=== PATIENT | male | born 1960 | race Two or more races ===

== ENCOUNTER 2018-11-30 01:18 | Inpatient (IN) | payer OTHER ==
[~2018-11-30] VITALS: Ht 172.7 cm; Wt 72.6 kg
--- NOTE | 2018-11-30 01:23 | NUR ---
PT [id number]. C/O "HAVING SOB, 80%O2 ON SITE. GIVEN NITRO+ALBUTEROL" +SOB NOTED. WHEEZING. -DIZZY. AOX4. PAIN DENIES PAIN AT THIS TIME. PT ON MONITOR IN BED 5. O2 SAT AT 86%. RT CALLED.
--- NOTE | 2018-11-30 01:25 | NUR ---
BLOOD DRAWN AND GIVEN TO LAB
[2018-11-30] MEDS ORDERED: Magnesium 1GM/D5W 100ML PREMIX 200 ML IV ONE ×2 (01:30→01:41)
[2018-11-30] MEDS ORDERED: IPRATROPIUM NEB FS 0.5 MG/2.5 ML AMPUL.NEB NEB ONE (01:30)
[2018-11-30] MEDS ORDERED: ALBUTEROL FS 2.5 MG/3 ML VIAL.NEB CONTNEB ONE (01:30)
[2018-11-30] MEDS ORDERED: methylPREDNISolone SOD SUCC 125 MG/2ML VIAL IV ONE (01:30)
--- NOTE | 2018-11-30 01:30 | NUR ---
RT AT BEDSIDE
[2018-11-30] MEDS ORDERED: ALBUTEROL FS 2.5 MG/3 ML VIAL.NEB ONE (01:34)
[2018-11-30] MEDS ORDERED: IPRATROPIUM NEB FS 0.5 MG/2.5 ML AMPUL.NEB ONE (01:34)
[2018-11-30] MEDS ORDERED: methylPREDNISolone SOD SUCC 125 MG/2ML VIAL ONE (01:41)
[2018-11-30 01:45] LABS: BASOPHILS # (AUTO) 0.1 /CMM (0.0-0.2); BASOPHILS % (AUTO) 0.8 % (0.0-2.0); EOSINOPHILS % (AUTO) 2.8 % (0.0-6.0); HEMATOCRIT 49 % (39-51); HEMOGLOBIN 16.4 g/dL (13.5-17.5); LYMPHOCYTES # (AUTO) 3.7 /CMM (0.8-4.8); LYMPHOCYTES % (AUTO) 26.2 % (20.0-44.0); MEAN CORPUSCULAR HGB CONC 33 g/dl (31.0-36.0); MEAN CORPUSCULAR VOLUME 95 fL (80-96); MONOCYTES # (AUTO) 0.6 /CMM (0.1-1.30); MONOCYTES % (AUTO) 4.2 % (2.0-12.0); NEUTROPHILS # (AUTO) 9.4 /CMM (1.8-8.9); PLATELET COUNT (AUTO) 220 /CMM (150-450); RED BLOOD CELL COUNT(AUTO) 5.17 MIL/uL (4.5-6.0); WHITE BLOOD COUNT (AUTO) 14.3 K/uL (4.3-11.0)
[2018-11-30 01:52] LABS: CALCIUM, SERUM 8.5 mg/dL (8.5-10.1); CARBON DIOXIDE 26 mmol/L (21-32); CHLORIDE 104 mmol/L (98-107); CREATININE 1.5 mg/dL (0.6-1.3); GLUCOSE 159 mg/dL (74-106); POTASSIUM 4.3 mmol/L (3.5-5.1); SODIUM SERUM 139 mmol/L (136-145); UREA NITROGEN, BLOOD 14 mg/dL (7-18)
[2018-11-30 02:10] LABS: ALANINE AMINOTRANSFERASE 22 U/L (12-78); ALBUMIN 3.6 g/dL (3.4-5.0); ALKALINE PHOSPHATASE 98 U/L (46-116); ASPARTATE AMINOTRANSFERASE 18 U/L (15-37); B-TYPE NATRIURETIC PEPTIDE 6467 PG/ML (0-125); BILIRUBIN,DIRECT 0.1 mg/dL (0.0-0.2); BILIRUBIN,TOTAL 0.4 mg/dL (0.2-1.0); TOTAL PROTEIN, SERUM 7.1 g/dL (6.4-8.2)
--- NOTE | 2018-11-30 02:13 | NUR ---
BROTHER AT BEDSIDE
[2018-11-30] MEDS ORDERED: NITROGLYCERIN 0.4 MG/TAB BOTTLE ONE (02:14)
--- NOTE | 2018-11-30 02:20 | NUR ---
PT TAKEN TO RADIOLOGY VIA HUAN
[2018-11-30] MEDS ORDERED: IOHEXOL-350 100 ML VIAL IV ONE (02:25)
[2018-11-30] MEDS ORDERED: CT SWABBABLE VALVE TRANS SET 1 EA INFUS.SET MC ONE (02:25)
[2018-11-30] MEDS ORDERED: IV NS 0.9% 250 ML IV ONE (02:25)
[2018-11-30] MEDS ORDERED: ASPIRIN 325 MG TABLET PO ONE (02:30)
[2018-11-30] MEDS ORDERED: NITROGLYCERIN 0.4 MG/TAB BOTTLE SL ONE (02:30)
[2018-11-30] MEDS ORDERED: ASPIRIN 325 MG TABLET ONE (02:47)
--- NOTE | 2018-11-30 02:53 | NUR ---
RADIOLOGY AT BEDSIDE FOR XRAY
[2018-11-30 03:51] LABS: APPEARANCE,URINE CLEAR (CLEAR); BILIRUBIN,URINE NEGATIVE (NEGATIVE); BLOOD, URINE TRACE Ery/uL (NEGATIVE); COLOR,URINE YELLOW (YELLOW); KETONES,URINE NEGATIVE (NEGATIVE); LEUKOCYTE ESTERASE ,URINE NEGATIVE (NEGATIVE); NITRITE, URINE NEGATIVE (NEGATIVE); PROTEIN,URINE NEGATIVE (NEGATIVE); UGLUCOSE NEGATIVE (NEGATIVE); UROBILINOGEN,URINE 0.2 EU/dL (0.2)
[2018-11-30] MEDS ORDERED: AZITHROMYCIN 500 MG in IV D5W 250 ML IV ONE (04:00)
[2018-11-30] MEDS ORDERED: CEFTRIAXONE 1GM BAG (ER ONLY) 1 GM/50 ML PIGGYBACK IV ONE (04:00)
[2018-11-30 04:01] LABS: RBC,URINE 0-2 /HPF (0-2); WBC,URINE 0-2 /HPF (0-3)
[2018-11-30 04:02] LABS: BACTERIA,URINE Rare /HPF (None Seen); SQUAMOUS EPITHELIAL CELL,UR Rare /HPF (None Seen)
--- NOTE | 2018-11-30 04:15 | NUR ---
PHLEB AT BEDSIDE FOR LABS
[2018-11-30] MEDS ORDERED: AZITHROMYCIN 500 MG VIAL ONE (04:16)
[2018-11-30] MEDS ORDERED: CEFTRIAXONE 1GM BAG (ER ONLY) 50 ML IV ONE (04:16)
--- NOTE | 2018-11-30 04:51 | NUR ---
PT ON 4L NC TOLERATING WELL. O2 SAT AT 96%. NO SOB NOTED. WILL CONTINUE TO MONITOR.
[2018-11-30] MEDS ORDERED: hydrALAZINE HCL IV 20 MG VIAL ONE (04:54)
[2018-11-30] MEDS ORDERED: hydrALAZINE HCL IV 20 MG VIAL IV ONE (05:00)
--- NOTE | 2018-11-30 08:06 | NUR ---
Patient is resting comfortably in bed. Family at BS. Patient states that he feels better at this time. Will continuously monitor the patient.
[2018-11-30] MEDS ORDERED: MAGNESIUM HYDROXIDE 30 ML UDC PO PRN (11:00)
[2018-11-30] MEDS ORDERED: MORPHINE SULFATE INJ 2 MG/ML DISP.SYRIN IV PRN (11:00)
[2018-11-30] MEDS ORDERED: ACETAMINOPHEN 325 MG TABLET PO PRN (11:00)
[2018-11-30] MEDS ORDERED: ZOLPIDEM TARTRATE 5 MG TABLET PO PRN (11:00)
[2018-11-30] MEDS ORDERED: CARVEDILOL 3.125 MG TABLET PO SCH (11:00)
[2018-11-30] MEDS ORDERED: HYDROCODONE/APAP 5/325MG 1 EACH TABLET PO PRN (11:00)
[2018-11-30] MEDS ORDERED: PANTOPRAZOLE 40 MG TABLET.DR PO SCH (11:00)
[2018-11-30] MEDS ORDERED: ONDANSETRON HCL/PF 4 MG/2 ML VIAL IVP PRN (11:00)
[2018-11-30] MEDS ORDERED: MAG HYDROX/AL HYDROX/SIMETH 30 ML UDC PO PRN (11:00)
[2018-11-30] MEDS ORDERED: IPRATROPIUM NEB FS 0.5 MG/2.5 ML AMPUL.NEB NEB PRN ×2 (11:00)
--- NOTE | 2018-11-30 11:01 | NUR ---
SEEN BY DR. SAWYER AND REQUESTED FOR TELE BED. TELE 325-2. PRIMARY NURSE AWARE.
--- NOTE | 2018-11-30 11:11 | NUR ---
REPORT GIVEN TO CHIRAG BREWER FOR MARAL TELE 325-2.
[2018-11-30 11:45] VITALS: BP 168/83
[2018-11-30 12:30] VITALS: BP 168/83
--- NOTE | 2018-11-30 12:30 | NUR ---
Tele/RN - Admission Received patient from ER, alert and oriented x 4, denies chest pain, palpitation but c/o shortness of breath with exertion, tele shows ST. Patient admitted for CHF Exacerbation, NSTEMI, Sepsis and community acquired pneumonia under the care of Brijesh Shay NP. Labs noted with elevated troponin and lactic acid trending up, sepsis management withheld secondary to fluid overload. Patient oriented to room, all belongings accounted for. Saline lock on the LAC is patent and intact. Skin assessment done, noted with lipoma on the left trapezius, no skin breakdown, refused photo to be taken. Fall precautions initiated. Admission orders noted and carried out. Will continue to monitor and intervene as needed.
[2018-11-30] MEDS: CARVEDILOL 3.125 MG TABLET PO SCH ×2 (12:49→21:56)
[2018-11-30] MEDS: PANTOPRAZOLE 40 MG TABLET.DR PO SCH (12:49)
--- NOTE | 2018-11-30 12:50 | NUR ---
Tele/RN - Cardio consult Seen and examined by Dr. Case, aware of troponin 2.903 with no further orders. Patient denies chest pain and no c/o palpitations at this time.
[2018-11-30] MEDS: FUROSEMIDE 40 MG/4 ML VIAL IV SCH ×3 (12:55→21:55)
[2018-11-30] MEDS: ENOXAPARIN SODIUM 80 MG/0.8 ML DISP.SYRIN SQ SCH ×2 (14:46→21:57)
--- NOTE | 2018-11-30 15:20 | NUR ---
Tele/RN - Nephrology consult Seen and examined by Dr. Faulkner with no new orders.
[2018-11-30 16:00] VITALS: BP 156/76
[2018-11-30] MEDS: methylPREDNISolone SOD SUCC 40 MG/ML VIAL IV SCH (17:11)
--- NOTE | 2018-11-30 18:45 | NUR ---
MS/RN - End of shift summary Patient is alert and oriented throughout the shift, denies chest pain, tele shows ST, breathing improved, BP and HR more controlled, on Lasix 40 mg IVP Q4H x 3 doses, one more dose to be given tonight. Patient on Rocephin and Zithromax for pneumonia. Possible discharge home tomorrow if stable. Will continue with current medical management.
--- NOTE | 2018-11-30 19:45 | NUR ---
RN OPENING NOTES RECEIVED REPORT FROM [facility] CHIRAG BREWER. FOUND Pt AWAKE, RESTING IN BED. NO S/S OF ACUTE DISTRESS OR SOB NOTED. Pt IS A/OX4, VERBAL, ABLE TO MAKE NEEDS KNOWN. NO C/O CHEST PAIN OR ANY KIND OF OTHER PAIN AT THIS TIME. IV ACCESS ON LAC #20G, SL. ON TELE MONITOR; TELE READING ST 106. SAFETY MEASURES IN PLACE. BED LOW, LOCKED, HOB ELEVATED, SIDE RAILS UP, CALL LIGHT AND BEDSIDE TABLE WITHIN REACH. WILL CONTINUE TO MONITOR Pt's CONDITION AND SAFETY THROUGHOUT THE NIGHT.
[2018-11-30 20:00] VITALS: BP 163/75
--- NOTE | 2018-11-30 20:16 | NUR ---
RN NOTES SPOKE WITH HEALTH CARE FACILITY ADMINISTRATOR HOSPITALIST ABBY KUMAR NP. INFORMED HER OF Pt's ELEVATED TROPONIN LEVEL OF 3.744. Pt IS ASYMPTOMATIC. NO C/O CHEST PAIN OR SOB. HR 101-106, WHICH IS Pt's BASELINE SINCE ADMISSION. Pt IS A/OX4, VERBAL. PER ABBY SAID OK FOR NOW. NO NEW ORDERS NEEDED AT THIS TIME SINCE Pt IS ASYMPTOMATIC AND IS ALREADY ON TREATMENT LOVENOX 70MG.
--- NOTE | 2018-11-30 22:59 | NUR ---
patient is alert,lives locally alone. He is ambulatory and independent with adl's. Has no DME or homehealth reported. His pcp is Dr. Christina Park. Patient plan to return home , brother Silvino [phone] will provide ride. Addendum: 11/30/18 at 2300 by PAT CONTRERAS RN Amended: Links added.
[2018-12-01] VITALS (7 sets, daily range): BP systolic 143–164; BP diastolic 74–84
--- NOTE | 2018-12-01 06:42 | NUR ---
RN CLOSING NOTES NO SIGNIFICANT CHANGES IN Pt's CONDITION. Pt REMAINS STABLE PER BASELINE AT THIS TIME. NO S/S OF ACUTE DISTRESS OR SOB NOTED DURING THE NIGHT. ALL NEEDS MET AND ATTENDED TO. Pt IS CURRENTLY RESTING IN BED WITH EVEN AND UNLABORED RESPIRATIONS. TELE READING SR-ST 105. SAFETY MEASURES IN PLACE. WILL ENDORSE TO DAYSHIFT RN FOR Pt's MARAL.
[2018-12-01 07:37] LABS: BASOPHILS # (AUTO) 0.1 /CMM (0.0-0.2); BASOPHILS % (AUTO) 0.3 % (0.0-2.0); HEMATOCRIT 49 % (39-51); HEMOGLOBIN 16.5 g/dL (13.5-17.5); LYMPHOCYTES # (AUTO) 1.4 /CMM (0.8-4.8); LYMPHOCYTES % (AUTO) 5.9 % (20.0-44.0); MEAN CORPUSCULAR HGB CONC 34 g/dl (31.0-36.0); MEAN CORPUSCULAR VOLUME 93 fL (80-96); MONOCYTES # (AUTO) 1.3 /CMM (0.1-1.30); MONOCYTES % (AUTO) 5.3 % (2.0-12.0); NEUTROPHILS % (AUTO) 88.5 % (43.0-81.0); PLATELET COUNT (AUTO) 228 /CMM (150-450); RED BLOOD CELL COUNT(AUTO) 5.21 MIL/uL (4.5-6.0); WHITE BLOOD COUNT (AUTO) 23.7 K/uL (4.3-11.0)
[2018-12-01 07:47] LABS: ALBUMIN 3.9 g/dL (3.4-5.0); BILIRUBIN,TOTAL 0.7 mg/dL (0.2-1.0); CALCIUM, SERUM 9.3 mg/dL (8.5-10.1); CREATININE 1.6 mg/dL (0.6-1.3); MAGNESIUM 2.6 mg/dL (1.8-2.4); PHOSPHORUS 4.7 mg/dL (2.5-4.9); POTASSIUM 4.2 mmol/L (3.5-5.1); TOTAL PROTEIN, SERUM 7.8 g/dL (6.4-8.2)
--- NOTE | 2018-12-01 08:04 | NUR ---
BOARD MILL SUPERVISOR NOTES PATIENT AWAKE IN BED, ALERT AND ORIENTED X4. PATIENT DENIES ANY PAIN AT THIS TIME. NO ACUTE RESPIRATORY DISTRESS NOTED. PATIENT WITH IV SALINE LOCK ON THE LEFT AC 20G, PATENT AND INTACT. SKIN DRY AND WARM TO TOUCH. PATIENT'S BED ON LOW AND LOCKED POSITION. CALL LIGHT WITHIN REACH.
[2018-12-01] MEDS ORDERED: IV D5/ 0.9% NACL 1,000 ML IV PRN (08:56)
[2018-12-01] MEDS ORDERED: CEFTRIAXONE 1 G in IV D5W 50 ML IV SCH (09:00)
[2018-12-01] MEDS ORDERED: ASPIRIN 81 MG TAB.CHEW PO SCH (09:00)
[2018-12-01] MEDS: methylPREDNISolone SOD SUCC 40 MG/ML VIAL IV SCH (09:28)
[2018-12-01] MEDS: ENOXAPARIN SODIUM 80 MG/0.8 ML DISP.SYRIN SQ SCH ×2 (09:29→21:16)
[2018-12-01] MEDS ORDERED: AZITHROMYCIN 500 MG in IV D5W 250 ML IV SCH (10:00)
[2018-12-01] MEDS: PANTOPRAZOLE 40 MG TABLET.DR PO SCH (10:47)
[2018-12-01] MEDS ORDERED: PANTOPRAZOLE 40 MG TABLET.DR PO SCH (12:30)
[2018-12-01] MEDS: METOPROLOL TARTRATE 50 MG TABLET PO SCH ×2 (12:39→17:56)
--- NOTE | 2018-12-01 19:15 | NUR ---
SENIOR PYTHON DEVELOPER NOTES PATIENT RESTING INSIDE ROOM. AWAKE, ALERT AND ORIENTED X 4, VERBALLY RESPONSIVE AND RESPONDS TO VERBAL AND TACTILE STIMULI. BREATHING EVEN AND UNLABORED. NO ACUTE DISTRESS NOTED. PATIENT CALM AND RELAXED. NO CHANGES IN LOC NOTED AT THIS TIME. IV INTACT AND PATENT. WILL ENDORSE TO INCOMING SHIFT FOR MARAL. BED LOCKED AND IN LOW POSITION. BILATERAL UPPER SIDE RAILS UP AND LOCKED. CALL LIGHT WITHIN EASY REACH
--- NOTE | 2018-12-01 19:50 | NUR ---
RN INITIAL NOTES: RECEIVED REPORT FROM JOSE M BEARD. PT IN BED, AWAKE, A/O X4 DENIES ANY CHEST PAIN OR DISCOMFORT AT THIS TIME. ON TELE SINUS RHYTHM WITH INVERTED T WAVE HR 67. AWAITING FOR AVAILABLE BED IN [facility], FOR CARDIAC CATH, INSURANCE ISSUES. IV ACCESS PATENT AND FLUSHING WELL, ON HL. SAFETY PRECAUTIONS FOR FALL INITIATED, CALL LIGHT IN REACH, WILL CONTINUE MONITORING PT.
--- NOTE | 2018-12-01 21:30 | NUR ---
RN NOTES: RECEIVED CALL FROM ROSI (MAGAN MANDAEN) ASKING HOW LONG PT BEEN ON TELE, MADE AWARE PT ON TELE SINCE ADMISSION 11/30/18, PER ROSI THERE'S STILL NO AVAILABLE ROOM/BED, WILL JUST CALL FOR UPDATE.
--- NOTE | 2018-12-01 23:00 | NUR ---
RN NOTES: RECEIVED CALL FROM [facility], WAS TOLD THAT THERE'S AVAILABLE BED,ACCEPTING MD DR SKAGGS, GOING TO ROOM 4315, PHONE NUMBER [phone] EXT [phone], TELE FLOOR
--- NOTE | 2018-12-01 23:01 | NUR ---
RN NOTES: MADE PT AWARE OF THE PLAN FOR TRANSFER, PT AGREE AND SIGNED PAPER WORKS NECESSARY FOR TRANSFER. PT WILL BE TRANSFER TO [facility] DUE TO INSURANCE 9PT INSURANCE CONTRACTED TO [facility]).
--- NOTE | 2018-12-01 23:15 | NUR ---
RN NOTES: CONTACTED [facility], REPORT GIVEN TO MAURO BEARD, MADE AWARE THAT ETA PER [facility] IS 0100AM.
--- NOTE | 2018-12-02 | NUR ---
RN NOTES: HENNY TJEADA [phone] MADE AWARE OF PT'S TRANSFER
[2018-12-02] MEDS: METOPROLOL TARTRATE 50 MG TABLET PO SCH (00:09)
--- NOTE | 2018-12-02 00:31 | NUR ---
RN NOTES: MAINTENANCE TECHNICIAN 2ND SHIFT MD CURRENTLY IN THE UNIT, MADE AWARE OF THE TRANSFER TO [facility] PER INSURANCE ISSUES AND CARDIAC CATHETERIZATION, PER MD OKAY TO PUT THE DC ORDER
--- NOTE | 2018-12-02 00:35 | NUR ---
RN NOTES: PT REFUSED TO REMOVE IV ACCESS, HE CLAIMED HE DOESN'T WANT TO BE POKED AGAIN ONCE HE ARRIVE TO THE OTHER HOSPITAL, [facility] RN MAURO MADE AWARE
[2018-12-02 02:00] VITALS: BP 153/81
--- NOTE | 2018-12-02 02:00 | NUR ---
DC NOTES: AMBULANCE/EMT CAME TO FLUXER PT. FOR LATERAL TRANSFER TO [facility] PER INSURANCE ISSUES, INSURANCE CONTRACTED WITH [facility], PT ALSO FOR CARDIAC CATHETERIZATION .PT HAS NO BELONGINGS. PT MADE HIS BROTHER AWARE OF THE TRANSFER, AND WAS GIVEN THE ADDRESS AND ROOM NUMBER INCLUDING HOSPITAL TELEPHONE NUMBER. VS TAKEN AND RECORDED. PT DENIES ANY CHEST PAIN OR DISCOMFORT. ARMBAND REMOVED. DC AND TRANSFER PAPER WORKS HANDED TO PT AND ONE COPY PROVIDED TO [employer]. PT LEFT THE UNIT IN STABLE CONDITION ACCOMPANIED BY EMT.
[2018-12-02] MEDS ORDERED: methylPREDNISolone SOD SUCC 40 MG/ML VIAL IV SCH (09:00)
== END 2018-12-02 02:00 | disposition short-term general hospital (02) | DRG 871 ==
LOC: ER 01:20 → TELE 11:05
PROVIDERS: ADMIT Nurse Practitioner Acute Care; ATTEND Nurse Practitioner Acute Care
DX: A41.9 Sepsis, unspecified organism (principal); J18.9 Pneumonia, unspecified organism; I50.23 Acute on chronic systolic (congestive) heart failure; I21.4 Non-ST elevation (NSTEMI) myocardial infarction; E87.2 Acidosis; N17.9 Acute kidney failure, unspecified; I42.9 Cardiomyopathy, unspecified; J90 Pleural effusion, not elsewhere classified; I13.0 Hypertensive heart and chronic kidney disease with heart failure and stage 1 through stage 4 chronic kidney disease, or unspecified chronic kidney disease; J44.0 Chronic obstructive pulmonary disease with (acute) lower respiratory infection; I11.0 Hypertensive heart disease with heart failure; I16.0 Hypertensive urgency; I25.10 Atherosclerotic heart disease of native coronary artery without angina pectoris; N18.9 Chronic kidney disease, unspecified; K21.9 Gastro-esophageal reflux disease without esophagitis; Z87.891 Personal history of nicotine dependence; F41.9 Anxiety disorder, unspecified; D17.9 Benign lipomatous neoplasm, unspecified
CPT/HCPCS: 36415; 71045-TC; 80048-TC; 80053-TC; 80061-TC; 80076-TC; 81000-TC; 83605-TC; 83735-TC; 83880; 84100-TC; 84484-TC; 85025-TC; 85730-TC; 87040-TC; 87081-TC; 87086-TC; 93307-TC; G0378; J0360; J0456; J0696; J1650; J1940; J2920; J2930; J3475; J7030; J7050; J7060; Q9967

== ENCOUNTER 2025-05-31 01:35 | Inpatient (IN) | payer OTHER ==
[~2025-05-31] VITALS: Ht 172.7 cm; Wt 81.6 kg
[2025-05-31 02:11] LABS: PLATELET COUNT (AUTO) 220 K/uL (150-450); RED BLOOD CELL COUNT(AUTO) 5.83 MIL/uL (4.5-6.0); RED CELL DISTRIBUTION WIDTH 14.0 % (11.5-15.0); WHITE BLOOD COUNT (AUTO) 13.2 K/uL (4.3-11.0)
[2025-05-31 02:20] LABS: APPEARANCE,URINE CLEAR (CLEAR); BLOOD, URINE 2+ Ery/uL (NEGATIVE); LEUKOCYTE ESTERASE ,URINE NEGATIVE (NEGATIVE); NITRITE, URINE NEGATIVE (NEGATIVE); UGLUCOSE NEGATIVE (NEGATIVE)
[2025-05-31 02:22] LABS: CALCIUM, SERUM 9.2 mg/dL (8.5-10.1); CREATININE 1.4 mg/dL (0.6-1.3); SODIUM SERUM 137 mmol/L (136-145); UREA NITROGEN, BLOOD 18 mg/dL (7-18)
[2025-05-31 02:33] LABS: INR 1.04 (0.91-1.10)
[2025-05-31 02:40] LABS: ADD URINE CULTURE NO; SQUAMOUS EPITHELIAL CELL,UR 0-2 /HPF (None Seen)
[2025-05-31 02:40] LABS: ASPARTATE AMINOTRANSFERASE 40 U/L (15-37); TOTAL PROTEIN, SERUM 8.4 g/dL (6.4-8.2)
[2025-05-31 03:15] LABS: ABG BASE EXCESS -6.3 mmol/L (-2.0-3.0); ABG OXYGEN SATURATION 95.9 % (94.0-98.0); ABG PCO2 53.2 mmHg (35.0-48.0); ABG PH 7.232 (7.350-7.450); ABG PO2 92.8 mmHg (83.0-108.0); ABG TOTAL HEMOGLOBIN 17.4 G/dL (13.5-17.5); SET RATE, BG 20.0; SITE, ABG RIGHT BRACHIAL
[2025-05-31 03:35] LABS: LACTIC ACID 5.7 mmol/L (0.4-2.0)
[2025-05-31] MEDS ORDERED: FUROSEMIDE 40 MG/4 ML VIAL ONE (03:51)
[2025-05-31] MEDS ORDERED: CEFTRIAXONE 1GM BAG (ER ONLY) 50 ML IV ONE (03:51)
[2025-05-31] MEDS ORDERED: AZITHROMYCIN 500 MG VIAL ONE (03:51)
[2025-05-31] MEDS: CEFTRIAXONE 1GM BAG (ER ONLY) 1 GM/50 ML PIGGYBACK IV ONE (04:08)
[2025-05-31] MEDS: AZITHROMYCIN 500 MG in IV D5W 250 ML IV ONE (04:08)
[2025-05-31] MEDS: FUROSEMIDE 40 MG/4 ML VIAL IV ONE (04:08)
[2025-05-31 05:00] VITALS: TEMP 98.1
[2025-05-31] MEDS ORDERED: LOSA100T31 PO (05:54)
[2025-05-31] MEDS ORDERED: AMLO-212 PO (05:54)
[2025-05-31] MEDS ORDERED: METO100T14 PO (05:54)
[2025-05-31] MEDS ORDERED: HYDR25TA4 PO (05:54)
[2025-05-31 07:20] VITALS: O2SAT 96
[2025-05-31 08:32] LABS: ABG BASE EXCESS -1.7 mmol/L (-2.0-3.0); ABG OXYGEN SATURATION 97.6 % (94.0-98.0); ABG PCO2 35.0 mmHg (35.0-48.0); ABG PH 7.417 (7.350-7.450); ABG PO2 103.5 mmHg (83.0-108.0); ABG TOTAL HEMOGLOBIN 16.6 G/dL (13.5-17.5); FLOW, BLOOD GAS 6.00 L/min (0.00-30.00); SITE, ABG RIGHT RADIAL
[2025-05-31] MEDS ORDERED: ACETAMINOPHEN 325 MG TABLET PO PRN (10:00)
[2025-05-31] MEDS ORDERED: ZOLPIDEM TARTRATE 5 MG TABLET PO PRN (10:00)
[2025-05-31] MEDS ORDERED: LEVALBUTEROL HCL NEB 1.25 MG/0.5 ML VIAL.NEB NEB SCH (10:00)
[2025-05-31] MEDS ORDERED: LEVALBUTEROL HCL NEB 1.25 MG/0.5 ML VIAL.NEB NEB PRN (12:30)
[2025-05-31 13:30] VITALS: BP 132/65; O2SAT 97
[2025-05-31] MEDS ORDERED: IPRATROPIUM NEB FS 0.5 MG/2.5 ML AMPUL.NEB NEB SCH (15:30)
[2025-05-31] MEDS: POTASSIUM CHLORIDE 20 MEQ TAB.PRT.SR PO SCH (16:44)
[2025-05-31] MEDS: FUROSEMIDE 40 MG/4 ML VIAL IV SCH (16:44)
[2025-05-31] MEDS ORDERED: FUROSEMIDE 40 MG/4 ML VIAL IV SCH (17:00)
[2025-06-01] MEDS ORDERED: AZITHROMYCIN 500 MG in IV D5W 250 ML IV SCH (04:00)
[2025-06-01] MEDS ORDERED: CEFTRIAXONE 1 G in IV D5W 50 ML IV SCH (05:00)
[2025-06-01] MEDS ORDERED: AMLODIPINE BESYLATE 5 MG TABLET PO SCH (09:00)
[2025-06-01] MEDS ORDERED: FUROSEMIDE 40 MG/4 ML VIAL IV SCH (09:00)
[2025-06-01] MEDS ORDERED: METOPROLOL TARTRATE 50 MG TABLET PO SCH (09:00)
== END 2025-05-31 23:59 | disposition short-term general hospital (02) | DRG 291 ==
LOC: ER 01:38 → TELE IN 06:15 → TELE1 15:39
PROVIDERS: ADMIT Internal Medicine; ATTEND Internal Medicine
PROC: 5A09357 Assistance with Respiratory Ventilation, Less than 24 Consecutive Hours, Continuous Positive Airway Pressure (ICD-10-PCS; principal; 2025-05-31)
DX: I13.0 Hypertensive heart and chronic kidney disease with heart failure and stage 1 through stage 4 chronic kidney disease, or unspecified chronic kidney disease (principal); I50.23 Acute on chronic systolic (congestive) heart failure; J18.9 Pneumonia, unspecified organism; J96.01 Acute respiratory failure with hypoxia; J96.02 Acute respiratory failure with hypercapnia; E87.20 Acidosis, unspecified; J44.1 Chronic obstructive pulmonary disease with (acute) exacerbation; J44.0 Chronic obstructive pulmonary disease with (acute) lower respiratory infection; I42.0 Dilated cardiomyopathy; D75.1 Secondary polycythemia; Z87.891 Personal history of nicotine dependence; N18.9 Chronic kidney disease, unspecified; Z20.822 Contact with and (suspected) exposure to COVID-19
CPT/HCPCS: 36415; 36600; 71045-TC; 80048-TC; 80076-TC; 81001; 82803-TC; 83605-TC; 83880; 84484-TC; 85025-TC; 85730-TC; 87040-TC; 87081-TC; 87086-TC; 93307-TC; G0378; J0456; J0696; J1938; J2919; J7050; J7060

== ENCOUNTER 2025-06-06 15:24 | Emergency (ER) | payer OTHER ==
[~2025-06-06] VITALS: Ht 172.7 cm; Wt 79.4 kg
[~2025-06-06 15:24] MED LIST: AMLO-212 PO; HYDR25TA4 PO; LOSA100T31 PO; METO100T14 PO
[2025-06-06] MEDS ORDERED: TAMS-12 PO (16:32)
[2025-06-06] MEDS ORDERED: TAMSULOSIN 0.4 MG CAP.SR.24H ONE (16:44)
[2025-06-06] MEDS: TAMSULOSIN 0.4 MG CAP.SR.24H PO ONE (16:51)
[2025-06-06 17:12] VITALS: BP 129/71; TEMP 98.3; O2SAT 99
== END 2025-06-06 17:13 | disposition home or self-care (01) ==
LOC: ER 15:32
DX: R33.9 Retention of urine, unspecified (principal); I11.0 Hypertensive heart disease with heart failure; I50.9 Heart failure, unspecified; Z79.899 Other long term (current) drug therapy

== ENCOUNTER 2025-06-18 03:51 | Emergency (ER) | payer OTHER ==
[~2025-06-18] VITALS: Ht 172.7 cm; Wt 79.8 kg
[~2025-06-18 03:51] MED LIST changes: +TAMS-12 PO
[2025-06-18 04:03] VITALS: BP 130/61; TEMP 98.5; O2SAT 98
[2025-06-18 04:26] LABS: APPEARANCE,URINE CLEAR (CLEAR); BLOOD, URINE NEGATIVE Ery/uL (NEGATIVE); LEUKOCYTE ESTERASE ,URINE NEGATIVE (NEGATIVE); NITRITE, URINE POSITIVE (NEGATIVE); UGLUCOSE NEGATIVE (NEGATIVE)
[2025-06-18 05:09] LABS: ADD URINE CULTURE YES; SQUAMOUS EPITHELIAL CELL,UR 0-2 /HPF (None Seen)
== END 2025-06-18 05:36 | disposition home or self-care (01) ==
LOC: ER 03:58
DX: R33.9 Retention of urine, unspecified (principal); I50.9 Heart failure, unspecified; Z79.899 Other long term (current) drug therapy
CPT/HCPCS: 81001; 87086-TC